=== PATIENT | male | born 1950 | race Caucasian/White ===

== ENCOUNTER 2016-06-29 12:41 | Emergency (ER) | payer MEDICARE, MEDICAID ==
[2016-06-29 12:57] VITALS: TEMP 97
--- NOTE | 2016-06-29 13:47 | RAD ---
EXAM DESCRIPTION: X-RAY CHEST- TWO VIEWS CLINICAL HISTORY: Shortness of breath. COMPARISON: 02/28/2014 TECHNIQUE: 2.0 views of the chest FINDINGS: There are no pneumothoraces or pleural effusions. There is mild bilateral vascular congestion and mild cardiomegaly. There is minimal discoid atelectasis/ infiltrate in the right mid to lower lung zone. IMPRESSION: There is mild bilateral vascular congestion and mild cardiomegaly. There is minimal discoid atelectasis/ infiltrate in the right mid to lower lung zone. Electronically signed by: Surjit Alvarado MD 06/29/2016 13:45
--- NOTE | 2016-06-29 14:47 | ED.PDOC ---
History of Present Illness - General Chief Complaint: Respiratory Problem Stated Complaint: shortness of breath Time Seen by Provider: 06/29/16 13:03 Source: patient, RN notes reviewed, Vital Signs reviewed Exam Limitations: no limitations - History of Present Illness Initial Comments: Patient is a 66 y/o male with a history of afib. His afib has been under control and he is currently only taking Eliquis. He has had increasing shortness of breath the past week. It has escalated today. He denies any fever or chills. The shortness of breath is worse when he lays flat. Timing/Duration: 1 week, getting worse Severity: moderate Activities at Onset: none Possible Cause: unknown cause Improving Factors: other - sitting up Worsening Factors: other - laying down Associated Symptoms: denies symptoms Respiratory Risk Factors: no cause identified Allergies/Adverse Reactions: Allergies NO KNOWN ALLERGY Allergy (Verified 06/29/16 12:56) Home Medications: Ambulatory Orders Apixaban [Eliquis] 5 mg PO DAILY 06/29/16 Azithromycin 250 mg PO DAILY 06/29/16 Furosemide [Lasix] 20 mg PO DAILY #32 tab 06/29/16 Metoprolol Succinate [Metoprolol Succinate ER] 25 mg PO DAILY #30 tab 06/29/16 Review of Systems - Review of Systems Constitutional: States: no symptoms reported EENTM: States: no symptoms reported Respiratory: States: orthopnea, short of breath Cardiology: States: palpitations Gastrointestinal/Abdominal: States: no symptoms reported Genitourinary: States: no symptoms reported Musculoskeletal: States: no symptoms reported Skin: States: no symptoms reported Neurological: States: no symptoms reported Endocrine: States: no symptoms reported Hematologic/Lymphatic: States: no symptoms reported All other Systems: Reviewed and Negative Past Medical History (General) - Patient Medical History Hx Cardiac Disorders: Yes - A-fib Hx Congestive Heart Failure: Yes Hx Hypertension: No Surgical History: no surgical history - Vaccination History Hx Tetanus, Diphtheria Vaccination: No Hx Influenza Vaccination: No Hx Pneumococcal Vaccination: No - Social History Hx Tobacco Use: No Hx Alcohol Use: No Hx Substance Use: No Hx Substance Use Treatment: No Hx Depression: No - Activities of Daily Living Hospice Agency (if applicable):: None - Female History Patient is a Female of Child Bearing Age (10 -59 yrs old): No Patient : No Family Medical History - Family History Mother Living Status: Still Living Hx Cardiac Disease: Yes Hx Family;Other: cancer Physical Exam - Physical Exam General Appearance: Alert, Anxious, Restless Eyes, Ears, Nose, Throat Exam: normal ENT inspection Respiratory: lungs clear, normal breath sounds, accessory muscle use Cardiovascular/Chest: normal peripheral pulses, tachycardia, irregularly irregular Gastrointestinal/Abdominal: normal bowel sounds, non tender, soft, no organomegaly Extremity: pedal edema - 1+ Neurologic: alert, normal mood/affect, oriented x 3 Skin Exam: normal color, warm/dry Progress - Progress Progress: 06/29/16 17:18 After Metoprolol 5 mg IV, Patient's rate decreased to the 80s and his blood pressure decreased to 130s/80s. Patient's shortness of breath decreased significantly. He then informed me that he used to take metoprolol and lasix about a year ago, but when his medicaid started, he didn't get refills of them. Therefore, we will restart Patient's metoprolol and lasix. He is to follow up with his PCP in 3-5 days, or come to the ED if his symptoms worsen. He wi8ll also make an appointment with his psychiatry adult physician. - Results/Orders Results/Orders: 06/29/16 06/29/16 06/29/16 12:45 12:58 15:07 Temperature 97.0 F L Pulse Rate [ 93 H 110 H pulse ox] Respiratory 24 24 24 Rate Blood Pressure 140/95 144/98 [Left Arm] O2 Sat by Pulse 93 L 96 Oximetry 06/29/16 06/29/16 06/29/16 15:31 16:00 17:00 Temperature Pulse Rate [ 146 H 98 H 99 H pulse ox] Respiratory 24 20 20 Rate Blood Pressure 133/81 126/100 131/89 [Left Arm] O2 Sat by Pulse 96 95 94 L Oximetry 06/29/16 14:15 EKG STAT Laboratory Results WBC 11.6 K/mm3 (4.8-10.8) H 06/29/16 13:10 RBC 5.26 M/mm3 (4.70-6.10) 06/29/16 13:10 Hgb 15.3 gm/dL (14.0-18.0) 06/29/16 13:10 Hct 47.6 % (42.0-52.0) 06/29/16 13:10 MCV 90.6 fl (80.0-94.0) 06/29/16 13:10 MCH 29.1 pg (27.0-31.0) 06/29/16 13:10 MCHC 32.1 g/dL (33.0-37.0) L 06/29/16 13:10 RDW 15.0 % (11.5-14.5) H 06/29/16 13:10 Plt Count 160 K/mm3 (130-400) 06/29/16 13:10 MPV 10.9 fl (7.40-10.4) H 06/29/16 13:10 Absolute Neuts (auto) 9.30 K/uL (1.8-6.8) H 06/29/16 13:10 Absolute Lymphs (auto) 1.20 K/uL (1.0-3.4) 06/29/16 13:10 Absolute Monos (auto) 0.90 K/uL (0.2-0.8) H 06/29/16 13:10 Absolute Eos (auto) 0.10 K/uL (0.0-0.4) 06/29/16 13:10 Absolute Basos (auto) 0.10 K/uL (0.0-0.1) 06/29/16 13:10 Neutrophils % 80.1 % (42.0-78.0) H 06/29/16 13:10 Lymphocytes % 10.7 % (20.0-50.0) L 06/29/16 13:10 Monocytes % 8.0 % (2.0-9.0) 06/29/16 13:10 Eosinophils % 0.7 % (1.0-5.0) L 06/29/16 13:10 Basophils % 0.5 % (0.0-2.0) 06/29/16 13:10 D-Dimer, Quantitative < 200 ng/mL (0-230) 06/29/16 13:10 Sodium 138 mmol/L (135-145) 06/29/16 13:10 Potassium 3.8 mmol/L (3.6-5.0) 06/29/16 13:10 Chloride 105 mmol/L (101-111) 06/29/16 13:10 Carbon Dioxide 25 mmol/L (21-31) 06/29/16 13:10 Anion Gap 11.8 (12-18) L 06/29/16 13:10 BUN 20 mg/dL (7-18) H 06/29/16 13:10 Creatinine 0.96 mg/dL (0.6-1.3) 06/29/16 13:10 BUN/Creatinine Ratio 20.8 (10-20) H 06/29/16 13:10 Random Glucose 135 mg/dL (70-105) H 06/29/16 13:10 Serum Osmolality 280.3 mOsm/L (275-295) 06/29/16 13:10 Calcium 9.3 mg/dL (8.4-10.2) 06/29/16 13:10 Total Bilirubin 1.3 mg/dL (0.2-1.0) H 06/29/16 13:10 AST 34 IU/L (10-42) 06/29/16 13:10 ALT 51 IU/L (10-60) 06/29/16 13:10 Alkaline Phosphatase 64 IU/L (42-121) 06/29/16 13:10 Creatine Kinase 36 IU/L (38-174) L 06/29/16 13:10 CK-MB (CK-2) 2.2 ng/mL (0.0-4.4) 06/29/16 13:10 CK-MB (CK-2) % Not Reportable 06/29/16 13:10 Troponin I 0.05 ng/mL (0.01-0.05) 06/29/16 13:10 B-Natriuretic Peptide 951.0 pg/ml (0-100) H* 06/29/16 13:10 Serum Total Protein 6.9 gm/dL (6.4-8.2) 06/29/16 13:10 Albumin 4.0 g/dl (3.2-5.5) 06/29/16 13:10 Globulin 2.9 gm/dL (2.3-3.5) 06/29/16 13:10 Albumin/Globulin Ratio 1.4 (1.1-1.9) 06/29/16 13:10 - EKG/XRAY/CT EKG: Atrial, Fibrillation Comments: 119bpm, LAD, PVCs, No comparison, Afib with RVR XRAY: chest Xray Comments: Bilateral vascular congestion, mild cardiomegaly, minimal discoid atelectas Departure - Departure Clinical Impression: Atrial fibrillation with RVR Congestive heart failure Qualifiers: Congestive heart failure type: unspecified congestive heart failure type Congestive heart failure chronicity: acute on chronic Qualifier Code: (I50.9) Heart failure, unspecified Time of Disposition: 17:25 Disposition: Discharge to Home or Self Care Condition: Good Departure Forms: ED Discharge - Pt. Copy, Patient Portal Self Enrollment Instructions: Heart Failure, DI for Heart Failure, Atrial Fibrillation, DI for Atrial Fibrillation Diet: low fat, low cholesterol, diabetic diet, low salt diet Referrals: David Mckinley MD [Primary Care Provider] - 1-5 Days Prescriptions: Furosemide [Lasix] 20 mg PO DAILY #32 tab Metoprolol Succinate [Metoprolol Succinate ER] 25 mg PO DAILY #30 tab Home Medications: Ambulatory Orders Apixaban [Eliquis] 5 mg PO DAILY 06/29/16 Azithromycin 250 mg PO DAILY 06/29/16 Furosemide [Lasix] 20 mg PO DAILY #32 tab 06/29/16 Metoprolol Succinate [Metoprolol Succinate ER] 25 mg PO DAILY #30 tab 06/29/16 Additional Instructions: Follow up with PCP in 2-5 days. Call cardiologists office and make an appointment [facility]ATH[facility]. Follow up in ED if symptoms worsen or persist.
[2016-06-29] MEDS ORDERED: FUROSEMIDE INJ 40 MG/4 ML VIAL IV ONE (14:50)
[2016-06-29] MEDS ORDERED: METOPROLOL TARTRATE INJ 5 MG/5 ML VIAL IV ONE (15:03)
[2016-06-29] MEDS ORDERED: METOPROLOL SUCCINATE XL 25 MG TAB PO ONE (17:35)
[2016-06-29 17:49] VITALS: BP 148/104; O2SAT 95
[2016-06-30] MEDS ORDERED: METOPROLOL SUCCINATE XL 25 MG TAB PO ONE (17:15)
== END 2016-06-29 17:56 | disposition home or self-care (01) ==
LOC: ER 12:41
DX: I48.91 Unspecified atrial fibrillation (principal); I50.9 Heart failure, unspecified; Z79.899 Other long term (current) drug therapy; Z79.01 Long term (current) use of anticoagulants; Z82.49 Family history of ischemic heart disease and other diseases of the circulatory system; Z80.9 Family history of malignant neoplasm, unspecified
CPT/HCPCS: 71020; 80053; 82550; 82553; 83880; 84484; 85025; 85379; 93005; J1940

== ENCOUNTER 2016-07-19 16:09 | Emergency (ER) | payer MEDICARE, MEDICAID ==
--- NOTE | 2016-07-19 16:51 | RAD ---
EXAM DESCRIPTION: XR CHEST 1 VIEW CLINICAL HISTORY: shortness of breath x 4 hours COMPARISON: June 29, 2016 FINDINGS: Cardiac silhouette is enlarged, unchanged compared with the prior exam. EKG leads project over the chest. There is atherosclerosis. Linear opacity in the right lower lung may represent scar versus subsegmental atelectasis. There is no discrete radiographic evidence of acute pulmonary edema. There is no focal parenchymal or pleural disease. There is no acute osseous process visualized. IMPRESSION: Linear opacity in the right lower lung may represent scar versus subsegmental atelectasis. Enlarged cardiac silhouette is unchanged compared with the prior exam and could be secondary to cardiomegaly versus a pericardial fluid collection. Electronically signed by: Truong Hanna 07/19/2016 16:49
--- NOTE | 2016-07-19 17:22 | ED.PDOC ---
History of Present Illness - General Chief Complaint: Respiratory Problem Stated Complaint: sob Time Seen by Provider: 07/19/16 17:16 Source: patient Exam Limitations: no limitations - History of Present Illness Initial Comments: Patient stated that he was watching tv at home and had sob which got worse the last 4 hours.Had history of long standing A.fib. on Eliquis Timing/Duration: 4-6 hours Severity: moderate Activities at Onset: rest Possible Cause: other - history of a.fib Improving Factors: rest Worsening Factors: other - activity Respiratory Risk Factors: no cause identified Allergies/Adverse Reactions: Allergies NO KNOWN ALLERGY Allergy (Verified 06/29/16 12:56) Home Medications: Ambulatory Orders Apixaban [Eliquis] 5 mg PO DAILY 06/29/16 Azithromycin 250 mg PO DAILY 06/29/16 Furosemide [Lasix] 20 mg PO DAILY #32 tab 06/29/16 Metoprolol Succinate [Metoprolol Succinate ER] 25 mg PO DAILY #30 tab 06/29/16 Review of Systems - Review of Systems Constitutional: States: no symptoms reported EENTM: States: no symptoms reported Respiratory: States: orthopnea, short of breath Cardiology: States: palpitations Gastrointestinal/Abdominal: States: no symptoms reported Genitourinary: States: no symptoms reported Musculoskeletal: States: no symptoms reported Skin: States: no symptoms reported Neurological: States: no symptoms reported Endocrine: States: no symptoms reported Hematologic/Lymphatic: States: no symptoms reported Past Medical History (General) - Patient Medical History Hx Cardiac Disorders: Yes - A-fib Hx Congestive Heart Failure: Yes Hx Hypertension: No Surgical History: no surgical history - Vaccination History Hx Tetanus, Diphtheria Vaccination: No Hx Influenza Vaccination: No Hx Pneumococcal Vaccination: No - Social History Hx Tobacco Use: No Hx Alcohol Use: No Hx Substance Use: No Hx Substance Use Treatment: No Hx Depression: No - Activities of Daily Living Patient Lives Alone: No - lives with ninety year old mom Grooming Ability: Independent Eating (Feeding) Ability: Independent Toileting Ability: Independent - Female History Patient : No Family Medical History - Family History Mother Living Status: Still Living Hx Family Congestive Heart Failure: Yes - dad Hx Cardiac Disease: Yes Hx Family;Other: cancer Physical Exam - Physical Exam General Appearance: Alert, Comfortable, No apparent distress Eyes, Ears, Nose, Throat Exam: PERRL/EOMI, normal ENT inspection, TMs normal, pharynx normal Neck: non-tender, full range of motion Respiratory: no respiratory distress, rales - bases fine Cardiovascular/Chest: normal peripheral pulses, no gallop, no JVD, irregularly irregular - heart rate 115 Peripheral Pulses: radial,right: 1+, radial,left: 1+ Gastrointestinal/Abdominal: normal bowel sounds, non tender, soft, no organomegaly Extremity: non-tender, normal inspection, no pedal edema, normal capillary refill Neurologic: alert, normal mood/affect, oriented x 3 Skin Exam: normal color, warm/dry Lymphatic: no adenopathy Progress - Results/Orders Results/Orders: 07/19/16 16:22 Telemetry .ONCE EKG Stat Pulse Ox Stat Pulse Oximetry Assessment DAILY 07/19/16 18:24 CARDIAC ENZYME GROUP Stat 07/19/16 18:25 EKG Assessment ONCE 07/19/16 18:29 CARDIAC PANEL,ER Stat TSH [THYROID STIMULATING HORMONE] Stat EKG Assessment ONCE 07/19/16 18:30 EKG STAT EKG STAT Laboratory Results WBC 8.8 K/mm3 (4.8-10.8) 07/19/16 16:31 RBC 5.59 M/mm3 (4.70-6.10) 07/19/16 16:31 Hgb 16.5 gm/dL (14.0-18.0) 07/19/16 16:31 Hct 51.6 % (42.0-52.0) 07/19/16 16:31 MCV 92.3 fl (80.0-94.0) 07/19/16 16:31 MCH 29.5 pg (27.0-31.0) 07/19/16 16:31 MCHC 32.0 g/dL (33.0-37.0) L 07/19/16 16:31 RDW 15.8 % (11.5-14.5) H 07/19/16 16:31 Plt Count 188 K/mm3 (130-400) 07/19/16 16:31 MPV 10.1 fl (7.40-10.4) 07/19/16 16:31 Absolute Neuts (auto) 6.20 K/uL (1.8-6.8) 07/19/16 16:31 Absolute Lymphs (auto) 1.50 K/uL (1.0-3.4) 07/19/16 16:31 Absolute Monos (auto) 1.00 K/uL (0.2-0.8) H 07/19/16 16:31 Absolute Eos (auto) 0.10 K/uL (0.0-0.4) 07/19/16 16:31 Absolute Basos (auto) 0.10 K/uL (0.0-0.1) 07/19/16 16:31 Neutrophils % 70.0 % (42.0-78.0) 07/19/16 16:31 Lymphocytes % 16.9 % (20.0-50.0) L 07/19/16 16:31 Monocytes % 10.8 % (2.0-9.0) H 07/19/16 16:31 Eosinophils % 1.3 % (1.0-5.0) 07/19/16 16:31 Basophils % 1.0 % (0.0-2.0) 07/19/16 16:31 PT 17.5 SECONDS (9.4-12.5) H 07/19/16 16:31 INR 1.580 07/19/16 16:31 PTT (SP) 31.1 SECONDS (25.1-36.5) 07/19/16 16:31 D-Dimer, Quantitative 270 ng/mL (0-230) H* 07/19/16 16:31 Sodium 141 mmol/L (135-145) 07/19/16 16:31 Potassium 3.9 mmol/L (3.6-5.0) 07/19/16 16:31 Chloride 105 mmol/L (101-111) 07/19/16 16:31 Carbon Dioxide 29 mmol/L (21-31) 07/19/16 16:31 Anion Gap 10.9 (12-18) L 07/19/16 16:31 BUN 18 mg/dL (7-18) 07/19/16 16:31 Creatinine 1.30 mg/dL (0.6-1.3) 07/19/16 16:31 BUN/Creatinine Ratio 13.8 (10-20) 07/19/16 16:31 Random Glucose 123 mg/dL (70-105) H 07/19/16 16:31 Serum Osmolality 284.5 mOsm/L (275-295) 07/19/16 16:31 Calcium 9.2 mg/dL (8.4-10.2) 07/19/16 16:31 Magnesium 2.2 mg/dL (1.8-2.5) 07/19/16 16:31 Creatine Kinase 46 IU/L (38-174) 07/19/16 16:31 CK-MB (CK-2) 2.5 ng/mL (0.0-4.4) 07/19/16 16:31 CK-MB (CK-2) % Not Reportable 07/19/16 16:31 Troponin I 0.22 ng/mL (0.01-0.05) H* 07/19/16 16:31 B-Natriuretic Peptide 888.0 pg/ml (0-100) H* 07/19/16 16:31 07/19/16 16:22 Telemetry .ONCE EKG Stat Pulse Ox Stat Pulse Oximetry Assessment DAILY 07/19/16 18:25 EKG Assessment ONCE 07/19/16 18:30 EKG STAT EKG STAT Laboratory Results WBC 8.8 K/mm3 (4.8-10.8) 07/19/16 16:31 RBC 5.59 M/mm3 (4.70-6.10) 07/19/16 16:31 Hgb 16.5 gm/dL (14.0-18.0) 07/19/16 16:31 Hct 51.6 % (42.0-52.0) 07/19/16 16:31 MCV 92.3 fl (80.0-94.0) 07/19/16 16:31 MCH 29.5 pg (27.0-31.0) 07/19/16 16:31 MCHC 32.0 g/dL (33.0-37.0) L 07/19/16 16:31 RDW 15.8 % (11.5-14.5) H 07/19/16 16:31 Plt Count 188 K/mm3 (130-400) 07/19/16 16:31 MPV 10.1 fl (7.40-10.4) 07/19/16 16:31 Absolute Neuts (auto) 6.20 K/uL (1.8-6.8) 07/19/16 16:31 Absolute Lymphs (auto) 1.50 K/uL (1.0-3.4) 07/19/16 16:31 Absolute Monos (auto) 1.00 K/uL (0.2-0.8) H 07/19/16 16:31 Absolute Eos (auto) 0.10 K/uL (0.0-0.4) 07/19/16 16:31 Absolute Basos (auto) 0.10 K/uL (0.0-0.1) 07/19/16 16:31 Neutrophils % 70.0 % (42.0-78.0) 07/19/16 16:31 Lymphocytes % 16.9 % (20.0-50.0) L 07/19/16 16:31 Monocytes % 10.8 % (2.0-9.0) H 07/19/16 16:31 Eosinophils % 1.3 % (1.0-5.0) 07/19/16 16:31 Basophils % 1.0 % (0.0-2.0) 07/19/16 16:31 PT 17.5 SECONDS (9.4-12.5) H 07/19/16 16:31 INR 1.580 07/19/16 16:31 PTT (SP) 31.1 SECONDS (25.1-36.5) 07/19/16 16:31 D-Dimer, Quantitative 270 ng/mL (0-230) H* 07/19/16 16:31 Sodium 141 mmol/L (135-145) 07/19/16 16:31 Potassium 3.9 mmol/L (3.6-5.0) 07/19/16 16:31 Chloride 105 mmol/L (101-111) 07/19/16 16:31 Carbon Dioxide 29 mmol/L (21-31) 07/19/16 16:31 Anion Gap 10.9 (12-18) L 07/19/16 16:31 BUN 18 mg/dL (7-18) 07/19/16 16:31 Creatinine 1.30 mg/dL (0.6-1.3) 07/19/16 16:31 BUN/Creatinine Ratio 13.8 (10-20) 07/19/16 16:31 Random Glucose 123 mg/dL (70-105) H 07/19/16 16:31 Serum Osmolality 284.5 mOsm/L (275-295) 07/19/16 16:31 Calcium 9.2 mg/dL (8.4-10.2) 07/19/16 16:31 Magnesium 2.2 mg/dL (1.8-2.5) 07/19/16 16:31 Creatine Kinase 40 IU/L (38-174) 07/19/16 18:35 CK-MB (CK-2) 2.2 ng/mL (0.0-4.4) 07/19/16 18:35 CK-MB (CK-2) % Not Reportable 07/19/16 18:35 Troponin I 0.20 ng/mL (0.01-0.05) H* 07/19/16 18:35 B-Natriuretic Peptide 888.0 pg/ml (0-100) H* 07/19/16 16:31 TSH 2.40 uIU/mL (0.34-5.60) 07/19/16 18:35 - EKG/XRAY/CT EKG: Atrial, Fibrillation - heart rate 117 XRAY: chest - cardiomegaly Departure - Departure Clinical Impression: Dyspnea due to congestive heart failure, Atrial fibrillation with RVR, Non- STEMI (non-ST elevated myocardial infarction) Time of Disposition: 21:05 - D/W Spot Remover and er md Dr. Hernandez Disposition: Transfer to Hospital Condition: Good Departure Forms: ED Discharge - Pt. Copy, Patient Portal Self Enrollment Home Medications: Ambulatory Orders Apixaban [Eliquis] 5 mg PO DAILY 06/29/16 Azithromycin 250 mg PO DAILY 06/29/16 Furosemide [Lasix] 20 mg PO DAILY #32 tab 06/29/16 Metoprolol Succinate [Metoprolol Succinate ER] 25 mg PO DAILY #30 tab 06/29/16
[2016-07-19 21:02] VITALS: TEMP 97.5; O2SAT 95
[2016-07-19] MEDS ORDERED: METOPROLOL TARTRATE 50 MG TAB PO ONE (21:04)
[2016-07-19 21:50] VITALS: BP 156/102
== END 2016-07-19 21:25 | disposition short-term general hospital (02) ==
LOC: ER 16:09
DX: I21.4 Non-ST elevation (NSTEMI) myocardial infarction (principal); I50.9 Heart failure, unspecified; I11.0 Hypertensive heart disease with heart failure; I48.91 Unspecified atrial fibrillation; Z79.01 Long term (current) use of anticoagulants; Z82.49 Family history of ischemic heart disease and other diseases of the circulatory system

== ENCOUNTER 2017-03-11 10:59 | Emergency (ER) | payer MEDICARE, OTHER, MEDICAID ==
[2017-03-11 11:47] VITALS: TEMP 97.5
--- NOTE | 2017-03-11 11:47 | ED.PDOC ---
History of Present Illness - General Chief Complaint: Blood Pressure Problem Stated Complaint: elevated BP Time Seen by Provider: 03/11/17 11:32 Source: patient, RN notes reviewed, Vital Signs reviewed Exam Limitations: no limitations - History of Present Illness Initial Comments: Patient was sent in by home health for elevated blood pressure. He does not know what his blood pressure was and does not know what it normally runs other than "what it is suppose to be". He has no symptoms, no chest pain, WORTHY or SOB. He had just finished working out with physical therapy when they checked his blood pressure. Timing/Duration: unsure Severity: moderate Improving Factors: rest Worsening Factors: nothing Associated Symptoms: denies symptoms Allergies/Adverse Reactions: Allergies NO KNOWN ALLERGY Allergy (Verified 06/29/16 12:56) Home Medications: Ambulatory Orders Apixaban [Eliquis] 5 mg PO DAILY 06/29/16 Amiodarone HCl 200 mg PO DAILY 03/11/17 Aspirin [Aspirin Adult Low Dose] 81 mg PO DAILY 03/11/17 Clopidogrel Bisulfate [Plavix] 75 mg PO QD 03/11/17 Furosemide [Lasix] 40 mg PO DAILY PRN 03/11/17 Isosorbide Mononitrate [Imdur] 30 mg PO DAILY 03/11/17 Lisinopril 20 mg PO DAILY #30 tab 03/11/17 Review of Systems - Review of Systems Constitutional: States: no symptoms reported. Denies: diaphoresis, malaise EENTM: States: no symptoms reported Respiratory: States: no symptoms reported. Denies: short of breath Cardiology: States: no symptoms reported. Denies: chest pain, palpitations Gastrointestinal/Abdominal: States: no symptoms reported. Denies: nausea, vomiting Musculoskeletal: States: no symptoms reported Skin: States: no symptoms reported Neurological: States: no symptoms reported. Denies: headache, numbness, paresthesia, tingling, weakness All other Systems: No Change from Baseline Past Medical History (General) - Patient Medical History Hx Stroke: No Hx Cardiac Disorders: Yes - A-fib Hx Congestive Heart Failure: Yes Hx Hypertension: No Hx Thyroid Disease: Yes Hx Diabetes: No Hx MRSA: No - Vaccination History Hx Tetanus, Diphtheria Vaccination: No Hx Influenza Vaccination: No Hx Pneumococcal Vaccination: No - Social History Hx Tobacco Use: No Hx Alcohol Use: No Hx Substance Use: No Hx Substance Use Treatment: No Hx Depression: No - Female History Patient : No Family Medical History - Family History Mother Living Status: Still Living Hx Family Congestive Heart Failure: Yes - dad Hx Cardiac Disease: Yes Hx Family;Other: cancer Physical Exam - Physical Exam General Appearance: Alert, Comfortable, No apparent distress, Well Developed, Well Groomed, Well Hydrated, Well Nourished Ears, Nose, Throat: hearing grossly normal Neck: supple, normal inspection Respiratory: lungs clear, normal breath sounds, no respiratory distress, no accessory muscle use Cardiovascular/Chest: regular rate, rhythm, no gallop, no JVD, no murmur Extremity: normal range of motion, normal inspection Neurologic: no motor/sensory deficits, alert, normal mood/affect, oriented x 3 Skin Exam: normal color, warm/dry Comments: Vital Signs 03/11/17 03/11/17 11:00 11:29 Temperature 97.5 F L Pulse Rate [L 90 77 Arm] Respiratory 20 18 Rate Blood Pressure 154/107 148/91 [L Arm] O2 Sat by Pulse 94 L 93 L Oximetry Progress - Progress Progress: 03/11/17 11:48 BP here is mildly elevated. Will observe patient with serial BP checks and make sure it returns to normal. He is agreeable with plan. 03/11/17 12:49 BP 160/98 - will give Lisinopril 10mg PO, he is not currently on any BP medications, and see if that will bring his BP down. 03/11/17 14:48 Discussed patient w/ Dr. Mckinley, his PCP. Will give a total of 20mg of Lisinopril here, d/c with Rx for Lisinopril and have him follow up with [facility] tomorrow. Patient is agreeable with plan. Departure - Departure Clinical Impression: Uncontrolled hypertension Time of Disposition: 14:49 Disposition: Discharge to Home or Self Care Condition: Good Departure Forms: ED Discharge - Pt. Copy, Patient Portal Self Enrollment Instructions: DI for High Blood Pressure Diet: resume usual diet Activity: increase activity as tolerated Referrals: David Mckinley MD [Primary Care Provider] - 1-2 Days Prescriptions: Lisinopril 20 mg PO DAILY #30 tab Home Medications: Ambulatory Orders Apixaban [Eliquis] 5 mg PO DAILY 06/29/16 Amiodarone HCl 200 mg PO DAILY 03/11/17 Aspirin [Aspirin Adult Low Dose] 81 mg PO DAILY 03/11/17 Clopidogrel Bisulfate [Plavix] 75 mg PO QD 03/11/17 Furosemide [Lasix] 40 mg PO DAILY PRN 03/11/17 Isosorbide Mononitrate [Imdur] 30 mg PO DAILY 03/11/17 Lisinopril 20 mg PO DAILY #30 tab 03/11/17
[2017-03-11] MEDS ORDERED: METOPROLOL SUCCINATE XL 25 MG TAB PO ONE (12:49)
[2017-03-11] MEDS ORDERED: LISINOPRIL 10 MG TAB PO ONE ×2 (12:54→14:47)
[2017-03-11 15:10] VITALS: BP 161/106; O2SAT 95
== END 2017-03-11 14:59 | disposition home or self-care (01) ==
LOC: ER 10:59
DX: I11.0 Hypertensive heart disease with heart failure (principal); I50.9 Heart failure, unspecified; I48.91 Unspecified atrial fibrillation; E07.9 Disorder of thyroid, unspecified; Z79.82 Long term (current) use of aspirin; Z79.899 Other long term (current) drug therapy; Z79.01 Long term (current) use of anticoagulants

== ENCOUNTER → 2017-03-12 | Outpatient (CLI) | payer MEDICARE, OTHER, MEDICAID | LOC: GMA 14:10 | PROVIDERS: ATTEND Physician Assistant | DX: I10 Essential (primary) hypertension (principal) ==

== ENCOUNTER 2017-12-21 08:00 | Emergency (ER) | payer MEDICARE, OTHER, MEDICAID ==
[2017-12-21] MEDS ORDERED: SODIUM CHLORIDE 0.9% (FLUSH) 10 ML SYG IV PRN (08:22)
[2017-12-21] MEDS ORDERED: ASPIRIN TABLET 325 MG TAB PO ONE (08:22)
--- NOTE | 2017-12-21 08:24 | CT ---
Study: CT of the Head. Indication: stroke like symptoms Technique: Axial CT images of the head were acquired without intravenous contrast. This exam was performed according to our departmental dose-optimization program, which includes automated exposure control, adjustment of the mA and/or kV according to patient size and/or use of iterative reconstruction technique. Comparison: None. Findings: No CT evidence of acute ischemia, acute hemorrhage, mass, mass effect, midline shift, or extra-axial fluid collection. Ventricles are normal in configuration without hydrocephalus. Patchy hypoattenuation of the periventricular and subcortical white matter noted. This is nonspecific but most consistent with chronic microvascular ischemic change. Global parenchymal volume loss and intracranial atherosclerosis noted as well. Paranasal sinuses are adequately aerated. Mastoid air cells are adequately aerated. Osseous structures and soft tissues are unremarkable. Impression: 1. No CT evidence of acute intracranial abnormality. If persistent concern for acute ischemia, correlation MRI recommended. 2. Senescent changes. Electronically signed by: Kingsley Rubin MD 12/21/2017 8:22 AM CDT
--- NOTE | 2017-12-21 08:28 | ED.PDOC ---
History of Present Illness - General Chief Complaint: Neuro Symptoms/Deficits Stated Complaint: stroke Time Seen by Provider: 12/21/17 08:22 Source: patient, EMS Exam Limitations: no limitations - History of Present Illness Initial Comments: PT BROUGHT IN BY EMS AFTER BEING CALLED TO PATIENTS HOME FOR A FALL. EMS REPORTS PT EXHIBITED LEFT SIDED WEAKNESS AND SLURRED SPEECH. PT REPORTS FALLING THIS MORNING AND IS UNSURE HOW LONG HE LAID ON THE GROUND. PT ONLY COMPLAINS OF SOB AND GENERALIZED WEAKNESS. DENIES HEADACHE, CHEST PAIN, PALPITATIONS OR FOCAL WEAKNESS. Timing/Duration: unsure Severity: moderate Associated Symptoms: shortness of breath, weakness Allergies/Adverse Reactions: Allergies NO KNOWN ALLERGY Allergy (Verified 12/21/17 08:07) Home Medications: Ambulatory Orders Apixaban [Eliquis] 5 mg PO DAILY 06/29/16 Amiodarone HCl 200 mg PO DAILY 03/11/17 Aspirin [Aspirin Adult Low Dose] 81 mg PO DAILY 03/11/17 Clopidogrel Bisulfate [Plavix] 75 mg PO QD 03/11/17 Furosemide [Lasix] 40 mg PO DAILY PRN 03/11/17 Isosorbide Mononitrate [Imdur] 30 mg PO DAILY 03/11/17 Lisinopril 20 mg PO DAILY #30 tab 03/11/17 Review of Systems - Review of Systems Constitutional: Denies: chills, fever EENTM: Denies: double vision, nose congestion Respiratory: States: see HPI, short of breath. Denies: cough Cardiology: Denies: chest pain, palpitations Gastrointestinal/Abdominal: Denies: abdominal pain, diarrhea, nausea Genitourinary: Denies: discharge, frequency Musculoskeletal: Denies: back pain, joint swelling, muscle pain Skin: Denies: change in color, dryness, lesions Neurological: States: see HPI, weakness. Denies: headache, paresthesia Endocrine: States: no symptoms reported Hematologic/Lymphatic: States: no symptoms reported Past Medical History (General) - Patient Medical History Hx Stroke: No Hx Cardiac Disorders: Yes - A-fib Hx Congestive Heart Failure: Yes Hx Hypertension: No Hx Thyroid Disease: Yes Hx Diabetes: No Hx MRSA: No - Vaccination History Hx Tetanus, Diphtheria Vaccination: No Hx Influenza Vaccination: No Hx Pneumococcal Vaccination: No - Social History Hx Tobacco Use: No Hx Alcohol Use: No Hx Substance Use: No Hx Substance Use Treatment: No Hx Depression: No - Female History Patient : No Family Medical History - Family History Mother Living Status: Still Living Hx Family Congestive Heart Failure: Yes - dad Hx Cardiac Disease: Yes Hx Family;Other: cancer Physical Exam - Physical Exam General Appearance: Alert, Obese, Unkempt Eye Exam: bilateral normal Ears, Nose, Throat: hearing grossly normal Neck: full range of motion, supple Respiratory: lungs clear, other - SLIGHTLY TACHYPNEIC Cardiovascular/Chest: no murmur, tachycardia, irregularly irregular Gastrointestinal/Abdominal: non tender, soft Extremity: normal range of motion, non-tender Neurologic: no motor/sensory deficits, alert, normal mood/affect, oriented x 3, other - SLIGHT FLATTENING TO THE L NASOLABIAL FOLD, MILD TO MODERATE SLURRED SPEECHE Skin Exam: normal color, warm/dry Progress - Progress Progress: 12/21/17 09:40 PTS HR NOW IN THE 80S AFTER IV CARDIZEM. PT NOW COMPLAINS OF LEFT SIDED RIB PAIN AND ABDOMINAL PAIN SECONDARY TO THE FALL. CT CHEST/ABD/PEL ORDERED. 12/21/17 11:27 PT RESTING COMFORTABLY NOW AFTER MORPHINE. CT FINDINGS DISCUSSED. DISCUSSED PLAN TO TRANSFER TO [facility] FOR CARDIOLOGY EVAL. - Results/Orders Results/Orders: 12/21/17 08:22 Sodium Chloride 0.9% (Flush) [Saline Flush Syringe] 10 ml IV PRN PRN 12/21/17 08:23 IV Care:Saline Lock per Protoc QSHIFT Telemetry .ONCE 12/21/17 08:30 EKG STAT 12/21/17 09:16 Hold Metformin x 48Hrs [id number] 12/21/17 11:30 diltiaZEM DRIP [Cardizem Drip] 125 mg Sodium Chloride 0.9% 100Ml [NS (NACL 0.9 %) 100ml] 100 ml IVPB PRN Laboratory Results - last 24 hr 12/21/17 12/21/17 12/21/17 08:23 08:27 08:35 WBC 8.0 RBC 4.66 L Hgb 14.4 Hct 43.8 MCV 94.0 MCH 30.9 MCHC 32.8 L RDW 15.0 H Plt Count 160 MPV 10.2 Absolute Neuts (auto) 7.20 H Absolute Lymphs (auto) 0.40 L Absolute Monos (auto) 0.40 Absolute Eos (auto) 0.00 Absolute Basos (auto) 0.00 Neutrophils % 89.3 H Lymphocytes % 5.0 L Monocytes % 5.0 Eosinophils % 0.3 L Basophils % 0.4 PT INR PTT (SP) Sodium 141 Potassium 3.5 L Chloride 107 Carbon Dioxide 24 Anion Gap 13.5 BUN 19 H Creatinine 1.43 H BUN/Creatinine Ratio 13.3 POC Glucose 169 H Random Glucose 170 H Serum Osmolality 287.5 Calcium 8.8 Total Bilirubin 1.4 H AST 31 ALT 36 Alkaline Phosphatase 65 Creatine Kinase 61 CK-MB (CK-2) 2.1 CK-MB (CK-2) % Not Reportable Troponin I 0.04 Serum Total Protein 6.9 Albumin 3.8 Globulin 3.1 Albumin/Globulin Ratio 1.2 Urine Color Urine Appearance Urine pH Ur Specific [place] Urine Protein Urine Glucose (UA) Urine Ketones Urine Blood Urine Nitrite Urine Bilirubin Urine Urobilinogen Ur Leukocyte Esterase Urine RBC Urine WBC Ur Epithelial Cells Urine Bacteria Hyaline Casts Urine Yeast 12/21/17 12/21/17 08:35 09:10 WBC RBC Hgb Hct MCV MCH MCHC RDW Plt Count MPV Absolute Neuts (auto) Absolute Lymphs (auto) Absolute Monos (auto) Absolute Eos (auto) Absolute Basos (auto) Neutrophils % Lymphocytes % Monocytes % Eosinophils % Basophils % PT 15.5 H INR 1.340 PTT (SP) 21.5 L Sodium Potassium Chloride Carbon Dioxide Anion Gap BUN Creatinine BUN/Creatinine Ratio POC Glucose Random Glucose Serum Osmolality Calcium Total Bilirubin AST ALT Alkaline Phosphatase Creatine Kinase CK-MB (CK-2) CK-MB (CK-2) % Troponin I Serum Total Protein Albumin Globulin Albumin/Globulin Ratio Urine Color Yellow Urine Appearance Clear Urine pH 5.5 Ur Specific [place] >= 1.030 Urine Protein 100 H Urine Glucose (UA) Negative Urine Ketones Negative Urine Blood Trace-lysed H Urine Nitrite Negative Urine Bilirubin Negative Urine Urobilinogen 1.0 Ur Leukocyte Esterase Negative Urine RBC 0-1 Urine WBC 1-3 Ur Epithelial Cells 0-1 Urine Bacteria 0 Hyaline Casts 1-3 Urine Yeast Rare - EKG/XRAY/CT EKG: Atrial, Fibrillation, RVR, LVH - LAD, no ST T wave changes, Unchanged from 07/19/16 XRAY: chest - CHF PER RAD Departure - Departure Clinical Impression: Transient ischaemic attack (TIA), and cerebral infarction without residual deficits, Atrial fibrillation with RVR, Dyspnea due to congestive heart failure , Chest wall contusion Time of Disposition: 11:32 Disposition: Transfer to Hospital Condition: Fair Departure Forms: ED Discharge - Pt. Copy, Patient Portal Self Enrollment Referrals: David Mckinley MD [Primary Care Provider] - 1-2 Weeks Home Medications: Ambulatory Orders Apixaban [Eliquis] 5 mg PO DAILY 06/29/16 Amiodarone HCl 200 mg PO DAILY 03/11/17 Aspirin [Aspirin Adult Low Dose] 81 mg PO DAILY 03/11/17 Clopidogrel Bisulfate [Plavix] 75 mg PO QD 03/11/17 Furosemide [Lasix] 40 mg PO DAILY PRN 03/11/17 Isosorbide Mononitrate [Imdur] 30 mg PO DAILY 03/11/17 Lisinopril 20 mg PO DAILY #30 tab 03/11/17 Critical Care Note - Critical Care Note Total Time (mins): 48 Comments: CRITICAL EVENT: AFIB WITH RVR, REPORT OF STROKE LIKE SYMPTOMS CRITCAL FINDINGS: AFIB WITH RVR ON EKG @134BPM, SLURRED SPEECH WITH MILD L FACIAL DROOP. CRITICAL ACTIONS: INITIATION OF STROKE ACTIVATION PROTOCOL, IV CARDIZEM AND IV CARDIZEM DRIP Transfer to Outside Facility - Transfer Information Accepting Provider:: DR. DUBOSE Accepting Facility: [facility] Reason for Transfer: required specialist not available - CARDIOLOGY
--- NOTE | 2017-12-21 08:54 | RAD ---
Study: Single Frontal View of the Chest. Indication:chf Comparison: July 19, 2016. Impression: Patient rotated to the left. Cardiomegaly with mild interstitial edema. Underlying pneumonia not excluded, particularly at the left lung base. Short-term follow-up recommended. Tiny left pleural effusion suspected. No pneumothorax. No acute osseous abnormality. Electronically signed by: Kingsley Rubin MD 12/21/2017 8:52 AM CDT
[2017-12-21] MEDS ORDERED: MORPHINE SULFATE INJ 10 MG/ML VIAL IV ONE (09:17)
[2017-12-21 10:02] VITALS: O2SAT 96
--- NOTE | 2017-12-21 10:18 | CT ---
EXAM DESCRIPTION: Chest w/Contrast : Computed Tomography. CLINICAL HISTORY: trauma, chest pain COMPARISON: CT abdomen and pelvis on the same visit. TECHNIQUE: Spiral-axial scans at 5.0 mm intervals through the lungs and thorax with IV contrast. 2.5 mm lung algorithm axial reconstructions. Coronal and sagittal 2.0 Mm reconstructions. No adverse reactions. Total Exam DLP: 982.73 mGy-cm. This exam was performed according to our departmental dose-optimization program which includes automated exposure control, adjustment of the mA and/or kV according to patient size and/or use of iterative reconstruction technique; to reduce radiation dose to as low as reasonably achievable (ALARA). FINDINGS: Bilateral atelectasis more left lower lobe pneumonia right lower lobe. Also small right pleural effusion. Thickening of the horizontal fissure and bilateral thickening of the major fissures inferiorly. No left pleural effusion and no pneumothorax bilaterally. No abnormal nodules masses or infiltrates. Symmetric enhancement of the thyroid gland. Mediastinal lipomatosis with widening. No fluid or air or contrast. Atherosclerotic calcifications in the aortic arch. Coronary artery calcifications. Cardiomegaly. No soft tissue masses or abnormal density or enhancement in the chest wall. No enlarged lymph nodes in the mediastinum hilum or axilla. Arthrosis in the junction of the manubrium and sternum. No sternal fractures. Deformity of the anterior seventh costochondral junction which is age-indeterminate similar deformity also seen within the normal hilar. No significant soft tissue swelling. Multiple levels of disc space narrowing and endplate ridging. IMPRESSION: 1. Small right pleural effusion with no pneumothorax. Bilateral atelectasis. No abnormal nodules. Minimal thickening of the fissures. No definite contusions. 2. Mediastinal lipomatosis with no air-fluid or contrast in the mediastinum. Atherosclerotic changes in the aorta. Coronary artery calcifications. 3. Deformity of the left sixth and left seventh costochondral junctions which may be due to arthrosis or trauma. Unknown onset/duration. No definite rib fractures. Electronically signed by: Kalen Landaverde MD 12/21/2017 10:17 AM CDT
--- NOTE | 2017-12-21 10:38 | CT ---
EXAM DESCRIPTION: Abdomen/Pelvis w/Contrast: Computed Tomography. CLINICAL HISTORY: abdominal pain, s/p fall COMPARISON: CT scan of the head and chest on this visit. Chest radiograph. TECHNIQUE: Spiral-axial scans at 5.0 mm intervals through the abdomen and pelvis, after nonionic IV contrast; no oral contrast. Axial 2.5 mm reconstructions. Coronal and sagittal 3.0 mm reconstructions. No delayed scans. No adverse reactions. Total Exam DLP: 1541.83 mGy-cm. This exam was performed according to our departmental dose-optimization program which includes automated exposure control, adjustment of the mA and/or kV according to patient size and/or use of iterative reconstruction technique; to reduce radiation dose to as low as reasonably achievable (ALARA). FINDINGS: Liver, Stomach, Spleen, Adrenal Glands: Stomach is unremarkable. Solid organs are negative. No hematomas. Accessory spleens. Pancreas, Gallbladder, Ducts: Unremarkable. Kidneys and Ureters: Bilateral pararenal stranding is symmetric and most likely physiologic with no hematomas. Mesentery: Scattered fascial thickening with no ascites. No free intraperitoneal air. Aorta: Atherosclerotic calcification with no significant luminal narrowing and no aneurysm or contrast extravasation. No hematoma. Small Bowel: Unremarkable. Terminal Ileum/Cecum: Negative. Appendix not seen. Colon: Small caliber. Distal diverticula with no complications. Pelvic Organs: Urinary bladder catheter with balloon inflated. Prostate gland abutting the base of the urinary bladder and the seminal vesicles. No free fluid in the anterior peritoneal reflection. Spine and Bony Pelvis: Endplate spurs at some levels. No compression type vertebral body fractures. Abdominal Wall/Back Soft Tissues: Bilateral fatty inguinal hernias larger on the right not containing bowel. No significant soft tissue masses and no hematomas. IMPRESSION: No hematomas in the abdominal wall or intra-abdominal cavity. Major solid organs are intact. No free fluid, no free air, no contrast extravasation. Atherosclerotic changes in the aorta with no posttraumatic abnormality. Bilateral fatty inguinal hernias not containing bowel. Diverticulosis of the distal colon with no complications. Electronically signed by: Kalen Landaverde MD 12/21/2017 10:36 AM CDT
[2017-12-21] MEDS ORDERED: diltiaZEM DRIP 125 MG in SODIUM CHLORIDE 0.9% 100ML 100 ML IVPB SCH (11:30)
[2017-12-21] MEDS ORDERED: SODIUM CHLORIDE 0.9% 100ML 100 ML IVPB ONE (11:31)
[2017-12-21] MEDS ORDERED: diltiaZEM DRIP 125 MG/25 ML VIAL IVPB ONE (11:31)
[2017-12-21 12:22] VITALS: BP 132/94
== END 2017-12-21 12:00 | disposition short-term general hospital (02) ==
LOC: ER 08:00
DX: G45.9 Transient cerebral ischemic attack, unspecified (principal); I48.91 Unspecified atrial fibrillation; R00.0 Tachycardia, unspecified; I50.9 Heart failure, unspecified; S20.212A Contusion of left front wall of thorax, initial encounter; R10.9 Unspecified abdominal pain; K57.30 Diverticulosis of large intestine without perforation or abscess without bleeding; E07.9 Disorder of thyroid, unspecified; Z79.82 Long term (current) use of aspirin; Z79.899 Other long term (current) drug therapy; W18.39XA Other fall on same level, initial encounter; Y92.009 Unspecified place in unspecified non-institutional (private) residence as the place of occurrence of the external cause
CPT/HCPCS: 36416; 70450; 71045; 71260; 74177; 80053; 81001; 82550; 82553; 82948; 84484; 85025; 85610; 85730; 93005; J2270; J7050